=== PATIENT | male | born 1935 | race Caucasian/White ===

== ENCOUNTER → 2017-05-12 | Outpatient (CLI) | payer MEDICARE | END | disposition home or self-care (01) | LOC: CVU 13:05 | PROVIDERS: ATTEND Podiatrist Foot & Ankle Surgery | DX: I87.2 Venous insufficiency (chronic) (peripheral) (principal); E11.9 Type 2 diabetes mellitus without complications | CPT/HCPCS: 93970 ==

== ENCOUNTER 2017-10-11 10:08 | Day surgery (SDC) | payer MEDICARE ==
[~2017-10-11] VITALS: Ht 162.6 cm; Wt 102.0 kg
[~2017-10-11 10:08] MED LIST: AREDS 2 PO; ASPI-496 PO; BRIM5DRO2 EACHEYE; BUME2TAB PO; CALC600T23 PO; CELE200C PO; DILT120C64 PO; DIME50TA PO; DORZ10DR7 EACHEYE; DOXA4TAB3 PO; FISH1CAP PO; FLUT16SP NS; HYDR-3245 PO; MERC50TA17 PO; METF500T4 PO; MIRA25TA PO; MULT-516 PO; OMEP40CA6 PO; OXYGEN NS; POTA10TA6 PO; PRED5TAB PO; SODI30SP NS; TIMO1DRO2 EACHEYE; TRAV5DRO EACHEYE; UBID1CAP52 PO
[2017-10-11] MEDS ORDERED: LIDOCAINE 1%, 2ML ONE ×2 (10:29→10:32)
[2017-10-11] MEDS ORDERED: LACTATED RINGERS 1,000 ML IV SCH (10:32)
[2017-10-11 10:43] VITALS: BP 164/79
[2017-10-11] MEDS ORDERED: LIDOCAINE 1%, 2ML SQ PRN (11:00)
[2017-10-11 11:26] LABS: ASPARTATE AMINO TRANSFERASE 34 U/L (15-37); BLOOD UREA NITROGEN 17 mg/dL (7-18)
[2017-10-11] MEDS ORDERED: ONDANSETRON 2MG/ML, 2ML ONE (11:41)
[2017-10-11] MEDS ORDERED: FENTANYL PF 100 MCG/2ML ONE (11:41)
[2017-10-11] MEDS ORDERED: ROCURONIUM 10 MG/ML,10ML ONE (11:41)
[2017-10-11] MEDS ORDERED: DEXAMETHASONE 4 MG/ML, 1ML ONE (11:41)
[2017-10-11] MEDS ORDERED: SUCCINYLCHOLINE 20 MG/ML, 10ML ONE (11:41)
[2017-10-11] MEDS ORDERED: PROPOFOL 10 MG/ML, 20ML ONE (11:41)
== END 2017-10-11 15:25 ==
LOC: OUT 10:08
PROVIDERS: ATTEND Internal Medicine
DX: K22.710 Barrett's esophagus with low grade dysplasia (principal); J44.9 Chronic obstructive pulmonary disease, unspecified; Z98.890 Other specified postprocedural states; Z87.442 Personal history of urinary calculi
CPT/HCPCS: 36415; 43270; 80053; 82962; 93005; J0330; J1100; J2405; J2704; J3010; J3490; J7120

== ENCOUNTER → 2017-12-05 | Outpatient (CLI) | payer MEDICARE | END | disposition home or self-care (01) | LOC: RAD 12:29 | PROVIDERS: ATTEND Urology | DX: Z01.818 Encounter for other preprocedural examination (principal); N20.0 Calculus of kidney | CPT/HCPCS: 74018 ==

== ENCOUNTER 2017-12-07 07:04 | Day surgery (SDC) | payer MEDICARE ==
[~2017-12-07] VITALS: Ht 161.3 cm; Wt 98.1 kg
[2017-12-07] MEDS ORDERED: LACTATED RINGERS 1,000 ML IV SCH (07:57)
[2017-12-07 07:58] VITALS: BP 162/84
[2017-12-07] MEDS ORDERED: LIDOCAINE 1%, 2ML SQ PRN (08:00)
[2017-12-07] MEDS ORDERED: FENTANYL PF 250 MCG/5ML ONE (08:52)
[2017-12-07] MEDS ORDERED: PROPOFOL 10 MG/ML, 20ML ONE (08:53)
[2017-12-07] MEDS ORDERED: CIPROFLOXACIN/PMX 400MG/200ML 200 ML ONE (09:59)
[2017-12-07] MEDS ORDERED: MEPERIDINE/PF 25MG/0.5ML IVPush PRN (10:00)
[2017-12-07] MEDS ORDERED: ACETAMINOPHEN 325 MG TABLET PO PRN (10:00)
[2017-12-07] MEDS ORDERED: HYDROmorphone 1 MG/ML, 1ML IV PRN (10:00)
[2017-12-07] MEDS ORDERED: hydrALAzine 20 MG/ML, 1ML IV PRN (10:00)
[2017-12-07] MEDS ORDERED: ONDANSETRON 2MG/ML, 2ML IVPush PRN (10:00)
[2017-12-07] MEDS ORDERED: PROMETHAZINE 25 MG/ML, 1ML IV PRN (10:00)
[2017-12-07] MEDS ORDERED: OXYcodone 5 MG/5 ML ORAL.SOL UDC PO PRN (10:00)
[2017-12-07] MEDS ORDERED: FENTANYL PF 100 MCG/2ML IV PRN (10:00)
[2017-12-07] MEDS ORDERED: LABETALOL 5MG/ML, 20ML IV PRN (10:00)
[2017-12-07] MEDS ORDERED: MEPERIDINE/PF 50 MG/ML ONE (11:29)
[2017-12-07] MEDS ORDERED: OXYcodone 5 MG/5 ML ORAL.SOL UDC ONE (11:30)
[2017-12-07] MEDS ORDERED: HYDROcodone/APAP 5/325 TABLET PO PRN (13:30)
[2017-12-07] MEDS ORDERED: HYDROcodone/APAP 5/325 TABLET ONE (13:34)
== END 2017-12-07 15:10 | disposition home or self-care (01) ==
LOC: OUT 07:04
PROVIDERS: ATTEND Urology
DX: N20.2 Calculus of kidney with calculus of ureter (principal); N40.0 Benign prostatic hyperplasia without lower urinary tract symptoms; Z85.46 Personal history of malignant neoplasm of prostate; Z98.890 Other specified postprocedural states; Z90.49 Acquired absence of other specified parts of digestive tract; Z87.440 Personal history of urinary (tract) infections; Z87.39 Personal history of other diseases of the musculoskeletal system and connective tissue; J45.909 Unspecified asthma, uncomplicated
CPT/HCPCS: 52356; 74018; 76001; 82360; 82962; 88300; C1758; C1769; C2617; J0744; J2175; J2704; J3010; J3490; J7120

== ENCOUNTER 2018-02-10 09:43 | Day surgery (SDC) | payer MEDICARE ==
[2018-02-08 13:42] LABS: ALANINE AMINOTRANSFERASE 41 U/L (12-78); ALBUMIN 2.7 g/dL (3.4-5.0); ANION GAP 7 mmol/L (5-15); CALCIUM 8.5 mg/dL (8.5-10.1); CHLORIDE 107 mmol/L (98-107)
[2018-02-08 13:45] LABS: ALKALINE PHOSPHATASE 61 U/L (45-117); BILIRUBIN,TOTAL 0.8 mg/dL (0.2-1.0); CREATININE 0.98 mg/dL (0.7-1.3); TOTAL PROTEIN 6.5 g/dL (6.4-8.2)
[~2018-02-10] VITALS: Ht 162.6 cm; Wt 95.4 kg
[2018-02-10 10:20] VITALS: BP 148/80
[2018-02-10] MEDS ORDERED: LIDOCAINE-MPF 1%, 2ML ONE (10:28)
[2018-02-10] MEDS ORDERED: LIDOCAINE-MPF 1%, 2ML INFIL ONE (11:00)
[2018-02-10] MEDS ORDERED: LACTATED RINGERS 1,000 ML IV SCH (11:00)
[2018-02-10] MEDS ORDERED: MIDAZOLAM 1 MG/ML, 2ML ONE (11:39)
[2018-02-10] MEDS ORDERED: FENTANYL PF 100 MCG/2ML ONE (11:39)
[2018-02-10] MEDS ORDERED: PROPOFOL 10 MG/ML, 20ML ONE (12:30)
[2018-02-10] MEDS ORDERED: hydrALAzine 20 MG/ML, 1ML IV PRN (13:00)
[2018-02-10] MEDS ORDERED: OXYcodone 5 MG/5 ML ORAL.SOL UDC PO PRN (13:00)
[2018-02-10] MEDS ORDERED: LABETALOL 5MG/ML, 20ML IV PRN (13:00)
[2018-02-10] MEDS ORDERED: PROMETHAZINE 25 MG/ML, 1ML IV PRN (13:00)
[2018-02-10] MEDS ORDERED: FENTANYL PF 100 MCG/2ML IV PRN (13:00)
[2018-02-10] MEDS ORDERED: LORazepam 2 MG/ML, 1ML IVPush PRN (13:00)
[2018-02-10] MEDS ORDERED: MEPERIDINE/PF 25MG/0.5ML IVPush PRN (13:00)
[2018-02-10] MEDS ORDERED: morphine SULFATE 10 MG/ML, 1ML IV PRN (13:00)
[2018-02-10] MEDS ORDERED: ACETAMINOPHEN 325 MG TABLET PO PRN (13:00)
== END 2018-02-10 14:20 ==
LOC: OUT 09:43
PROVIDERS: ATTEND Internal Medicine Geriatric Medicine
DX: K22.710 Barrett's esophagus with low grade dysplasia (principal); K21.9 Gastro-esophageal reflux disease without esophagitis; J44.9 Chronic obstructive pulmonary disease, unspecified; G47.33 Obstructive sleep apnea (adult) (pediatric); Z88.8 Allergy status to other drugs, medicaments and biological substances
CPT/HCPCS: 36415; 43270; 80053; 82962; 93005; J2250; J2704; J3010; J3490; J7120

== ENCOUNTER → 2018-03-08 | Outpatient (CLI) | payer MEDICARE ==
[~2018-03-08] MED LIST changes: +Zicam PO
== END ==
LOC: STAR 08:09
PROVIDERS: ATTEND Internal Medicine Geriatric Medicine
DX: Z02.9 Encounter for administrative examinations, unspecified (principal)

== ENCOUNTER 2018-04-04 07:53 | Day surgery (SDC) | payer MEDICARE ==
[~2018-04-04] VITALS: Ht 162.6 cm; Wt 98.0 kg
[2018-04-04] MEDS ORDERED: LACTATED RINGERS 1,000 ML IV SCH (08:31)
[2018-04-04 08:33] VITALS: BP 163/81
[2018-04-04] MEDS ORDERED: LIDOCAINE-MPF 1%, 2ML INFIL ONE (09:00)
[2018-04-04] MEDS ORDERED: PROPOFOL 50 ML ONE (09:48)
[2018-04-04] MEDS ORDERED: FENTANYL PF 100 MCG/2ML ONE (10:01)
[2018-04-04] MEDS ORDERED: HYDROcodone/APAP 5/325 TABLET ONE (12:48)
[2018-04-04] MEDS ORDERED: HYDROcodone/APAP 5/325 TABLET PO ONE (13:00)
== END 2018-04-04 13:15 ==
LOC: OUT 07:53
PROVIDERS: ATTEND Internal Medicine Geriatric Medicine
DX: K22.70 Barrett's esophagus without dysplasia (principal); K21.0 Gastro-esophageal reflux disease with esophagitis; G47.33 Obstructive sleep apnea (adult) (pediatric); E11.9 Type 2 diabetes mellitus without complications; I48.91 Unspecified atrial fibrillation; J44.9 Chronic obstructive pulmonary disease, unspecified; Z88.1 Allergy status to other antibiotic agents; Z88.8 Allergy status to other drugs, medicaments and biological substances
CPT/HCPCS: 43270; 82962; 88305; J2704; J3010; J7120

== ENCOUNTER → 2018-05-18 | Outpatient (CLI) | payer MEDICARE ==
[~2018-05-18] MED LIST changes: +FURO20TA3 PO; +MECL25TA4 PO; +MELA10TA PO; +METF500T27 PO; -METF500T4 PO; +METF500T5 PO; +OXYM15MI4 NAS
[2018-05-18 12:24] LABS: ALANINE AMINOTRANSFERASE 50 U/L (12-78); ALBUMIN 2.8 g/dL (3.4-5.0); ANION GAP 6 mmol/L (5-15); CALCIUM 8.4 mg/dL (8.5-10.1); CHLORIDE 108 mmol/L (98-107); CREATININE 0.76 mg/dL (0.7-1.3)
[2018-05-18 12:26] LABS: ALKALINE PHOSPHATASE 64 U/L (45-117); BILIRUBIN,TOTAL 0.9 mg/dL (0.2-1.0); TOTAL PROTEIN 6.6 g/dL (6.4-8.2)
== END | disposition home or self-care (01) ==
LOC: STAR 11:18
PROVIDERS: ATTEND Internal Medicine Geriatric Medicine
DX: K22.710 Barrett's esophagus with low grade dysplasia (principal)
CPT/HCPCS: 36415; 80053; 93005

== ENCOUNTER 2018-05-23 08:26 | Day surgery (SDC) | payer MEDICARE ==
[~2018-05-23] VITALS: Ht 162.6 cm; Wt 94.4 kg
[2018-05-23] MEDS ORDERED: LACTATED RINGERS 1,000 ML IV SCH (09:01)
[2018-05-23 09:04] VITALS: BP 167/89
[2018-05-23] MEDS ORDERED: FENTANYL PF 100 MCG/2ML ONE (09:55)
[2018-05-23] MEDS ORDERED: MIDAZOLAM 1 MG/ML, 2ML ONE (09:55)
[2018-05-23] MEDS ORDERED: PROPOFOL 50 ML ONE (10:03)
[2018-05-23] MEDS ORDERED: OXYcodone 5 MG/5 ML ORAL.SOL UDC PO PRN (10:30)
[2018-05-23] MEDS ORDERED: HYDROmorphone 1 MG/ML, 1ML IV PRN (10:30)
[2018-05-23] MEDS ORDERED: MEPERIDINE/PF 25MG/0.5ML IVPush PRN (10:30)
[2018-05-23] MEDS ORDERED: FENTANYL PF 100 MCG/2ML IV PRN (10:30)
[2018-05-23] MEDS ORDERED: ACETAMINOPHEN 325 MG TABLET PO PRN (10:30)
[2018-05-23] MEDS ORDERED: PROMETHAZINE 25 MG/ML, 1ML IV PRN (10:30)
[2018-05-23] MEDS ORDERED: LABETALOL 5MG/ML, 20ML IV PRN (10:30)
[2018-05-23] MEDS ORDERED: HALOPERIDOL 5 MG/ML IV PRN (10:30)
[2018-05-23] MEDS ORDERED: hydrALAzine 20 MG/ML, 1ML IV PRN (10:30)
== END 2018-05-23 12:15 ==
LOC: OUT 08:26
PROVIDERS: ATTEND Internal Medicine Geriatric Medicine
DX: K22.719 Barrett's esophagus with dysplasia, unspecified (principal); K21.0 Gastro-esophageal reflux disease with esophagitis; E11.9 Type 2 diabetes mellitus without complications; I10 Essential (primary) hypertension; Z88.1 Allergy status to other antibiotic agents; Z88.8 Allergy status to other drugs, medicaments and biological substances; Z87.891 Personal history of nicotine dependence
CPT/HCPCS: 43270; 82962; J2704

== ENCOUNTER → 2018-07-14 | Outpatient (CLI) | payer MEDICARE ==
[~2018-07-14] MED LIST changes: +BRIN10DR EACHEYE; +CHOL200024 PO; +COMFORT EACHEYE; +METF500T17 PO; -METF500T5 PO; +POLY17PO5 PO; +VIT1CAPS42 PO; +[UNRECOGNIZED DRUG - OTHER] EACHEYE
== END | disposition home or self-care (01) ==
LOC: LAB 11:25
PROVIDERS: ATTEND Internal Medicine
DX: Z02.9 Encounter for administrative examinations, unspecified (principal)

== ENCOUNTER → 2018-07-18 | Outpatient (CLI) | payer MEDICARE | END | disposition home or self-care (01) | LOC: STAR 13:25 | PROVIDERS: ATTEND Internal Medicine Geriatric Medicine | DX: Z02.9 Encounter for administrative examinations, unspecified (principal) ==

== ENCOUNTER 2018-10-03 05:32 | Day surgery (SDC) | payer MEDICARE ==
[~2018-10-03] VITALS: Ht 162.6 cm; Wt 97.0 kg
[2018-10-03] MEDS ORDERED: SODIUM CHLORIDE 0.9% 1,000 ML IV SCH (06:25)
[2018-10-03 06:26] VITALS: BP 160/89
[2018-10-03 06:54] LABS: MEAN CORPUSCULAR HEMOGLOBIN 34.7 pg (27.5-34.5); MEAN CORPUSCULAR HGB CONC 33.1 g/dL (33.2-36.2); MEAN CORPUSCULAR VOLUME 104.8 fL (81-97); MEAN PLATELET VOLUME 7.6 fL (7.4-10.4); PLATELET COUNT 127 x10^3/uL (130-400); RED BLOOD COUNT 3.67 x10^6/uL (4.38-5.82); RED CELL DISTRIBUTION WIDTH 19.5 % (9.4-14.8)
[2018-10-03 07:55] LABS: BASOPHILS # (AUTO) 0.02 x10^3/uL (0-0.1); BASOPHILS % (AUTO) 1 % (0-1); EOSINOPHILS # (AUTO) 0.22 x10^3/uL (0-0.4); EOSINOPHILS % (AUTO) 6 % (1-7); LYMPHOCYTES # (AUTO) 0.48 x10^3/uL (1-3.4); LYMPHOCYTES % (AUTO) 13 % (22-44); MD SCAN; MONOCYTES # (AUTO) 0.55 x10^3/uL (0.2-0.8); MONOCYTES % (AUTO) 15 % (2-9); NEUTROPHILS # (AUTO) 2.33 x10^3/uL (1.8-6.8); NEUTROPHILS % (AUTO) 65 % (42-75)
[2018-10-03] MEDS ORDERED: LIDOCAINE-MPF 1%, 5ML ONE ×2 (07:58→08:37)
[2018-10-03] MEDS ORDERED: FLUMAZENIL 0.1 MG/1 ML, 5ML ONE (08:09)
[2018-10-03] MEDS ORDERED: MIDAZOLAM 1 MG/ML, 5ML ONE (08:09)
[2018-10-03] MEDS ORDERED: NALOXONE 1 MG/ML, 2ML ONE (08:09)
[2018-10-03] MEDS ORDERED: FENTANYL PF 100 MCG/2ML ONE ×2 (08:09)
== END 2018-10-03 09:50 | disposition home or self-care (01) ==
LOC: OUT 05:32
PROVIDERS: ATTEND Internal Medicine Hematology & Oncology
DX: D61.818 Other pancytopenia (principal); J44.9 Chronic obstructive pulmonary disease, unspecified; I48.91 Unspecified atrial fibrillation; I10 Essential (primary) hypertension; Z88.1 Allergy status to other antibiotic agents; Z88.8 Allergy status to other drugs, medicaments and biological substances; Z85.46 Personal history of malignant neoplasm of prostate
CPT/HCPCS: 36415; 38222; 77012; 85025; 85060; 85097; 88237; 88264; 88280; 88305; 88311; 88313; 99156; J2250; J3010; J7030; 99157; J2310

== ENCOUNTER → 2018-10-04 | Outpatient (CLI) | payer MEDICARE ==
[2018-10-04 13:04] LABS: ALANINE AMINOTRANSFERASE 32 U/L (12-78); ANION GAP 4 mmol/L (5-15); CALCIUM 8.4 mg/dL (8.5-10.1); CHLORIDE 111 mmol/L (98-107); CREATININE 0.78 mg/dL (0.7-1.3)
[2018-10-04 13:06] LABS: ALKALINE PHOSPHATASE 66 U/L (45-117); BILIRUBIN,TOTAL 1.1 mg/dL (0.2-1.0); TOTAL PROTEIN 6.6 g/dL (6.4-8.2)
== END | disposition home or self-care (01) ==
LOC: STAR 11:55
PROVIDERS: ATTEND Internal Medicine
DX: Z01.818 Encounter for other preprocedural examination (principal); K22.719 Barrett's esophagus with dysplasia, unspecified; Z88.0 Allergy status to penicillin; Z88.8 Allergy status to other drugs, medicaments and biological substances
CPT/HCPCS: 36415; 80053

== ENCOUNTER 2019-10-30 07:27 | Day surgery (SDC) | payer MEDICARE ==
[~2019-10-30] VITALS: Ht 162.6 cm; Wt 99.0 kg
[~2019-10-30 07:27] MED LIST changes: -BUME2TAB PO; +BUME2TAB3 PO; -FLUT16SP NS; +FLUT16SP24 NS; +OMEP40CA42 PO; -OMEP40CA6 PO
[2019-10-30] MEDS ORDERED: APIX2.5T PO (08:12)
[2019-10-30] MEDS ORDERED: FURO20TA3 PO (08:12)
[2019-10-30] MEDS ORDERED: LACTATED RINGERS 1,000 ML IV SCH (08:31)
[2019-10-30] MEDS ORDERED: LIDOCAINE-MPF 1%, 2ML ONE (08:34)
[2019-10-30] MEDS ORDERED: LIDOCAINE-MPF 1%, 2ML INFIL ONE (09:00)
[2019-10-30] MEDS ORDERED: PLEASE ENTER HEIGHT AND WEIGHT MC SCH (09:00)
[2019-10-30 09:02] VITALS: BP 166/95
[2019-10-30 09:10] LABS: ALANINE AMINOTRANSFERASE 38 U/L (12-78); ALBUMIN 2.8 g/dL (3.4-5.0); ANION GAP 6 mmol/L (5-15); CALCIUM 8.2 mg/dL (8.5-10.1); CHLORIDE 109 mmol/L (98-107); CREATININE 0.78 mg/dL (0.7-1.3)
[2019-10-30 09:13] LABS: ALKALINE PHOSPHATASE 63 U/L (45-117); BILIRUBIN,TOTAL 2.6 mg/dL (0.2-1.0); TOTAL PROTEIN 6.5 g/dL (6.4-8.2)
[2019-10-30] MEDS ORDERED: PROPOFOL 50 ML ONE (11:00)
== END 2019-10-30 13:20 | disposition home or self-care (01) ==
LOC: OUT 07:27
PROVIDERS: ATTEND Internal Medicine
DX: K22.710 Barrett's esophagus with low grade dysplasia (principal); K31.9 Disease of stomach and duodenum, unspecified; K21.9 Gastro-esophageal reflux disease without esophagitis; K50.90 Crohn's disease, unspecified, without complications; J44.9 Chronic obstructive pulmonary disease, unspecified; G47.33 Obstructive sleep apnea (adult) (pediatric); E11.9 Type 2 diabetes mellitus without complications; I48.91 Unspecified atrial fibrillation; Z88.1 Allergy status to other antibiotic agents; Z88.8 Allergy status to other drugs, medicaments and biological substances; Z99.81 Dependence on supplemental oxygen
CPT/HCPCS: 36415; 43239; 80053; 82962; 88305; 93005; J2704; J7120